=== PATIENT | male | born 1995 | race Caucasian/White ===

== ENCOUNTER 2018-02-09 18:17 | Emergency (ER) | payer OTHER ==
[~2018-02-09] VITALS: Ht 190.5 cm; Wt 70.0 kg
[2018-02-09 18:20] VITALS: BP 131/74
[2018-02-09] MEDS ORDERED: HYDROcodone/APAP 5/325 TABLET PO ONE (19:00)
[2018-02-09] MEDS ORDERED: HYDROcodone/APAP 5/325 TABLET ONE (19:14)
== END 2018-02-09 19:41 | disposition home or self-care (01) ==
LOC: ED 19:30
DX: S52.102A Unspecified fracture of upper end of left radius, initial encounter for closed fracture (principal); S70.12XA Contusion of left thigh, initial encounter; S80.02XA Contusion of left knee, initial encounter; S40.012A Contusion of left shoulder, initial encounter; V03.99XA Pedestrian with other conveyance injured in collision with car, pick-up truck or van, unspecified whether traffic or nontraffic accident, initial encounter; Y93.89 Activity, other specified; Y92.89 Other specified places as the place of occurrence of the external cause; Y99.8 Other external cause status
CPT/HCPCS: 29105; 99284